=== PATIENT | female | born 2000 | race Hispanic/Latino ===

== ENCOUNTER → 2024-01-26 | Day surgery (SDC) | payer OTHER ==
[2024-01-25 08:55] VITALS: BMI 20.5
[2024-01-25 14:27] LABS: Hematocrit 36.2 % (34.9-44.5); Hemoglobin 12.1 g/dL (12.0-15.5); Mean Corpuscular HGB CONC 33.4 g/dL (32.0-36.0); Mean Corpuscular Hemoglobin 30.3 pg (27.0-33.0); Mean Corpuscular Volume 90.5 fl (81.6-98.3); Mean Platelet Volume 11.7 fl (7.4-10.4); Platelet Count 275 10x3/uL (150-450); White Blood Cell (WBC) Count 9.2 10x3/uL (3.5-10.5)
[~2024-01-26] MED LIST: Dexamethasone 20 MG/5 ML VIAL ONE; Ibuprofen 400 MG TAB PO PRN; Ketorolac Tromethamine 30 MG (1 mL) VIAL ONE; Lidocaine 2% PF 5 ML VIAL ONE; Meperidine HCl/PF 25 MG (1 mL) VIAL ONE; Midazolam HCl 2 mg/2 ml Vial ONE; Misoprostol 200 MCG TAB ONE; Ondansetron PF 4 MG/2 ML Vial ONE; PROPOFOL 20 ML ONE; cefTRIAXone (ROCEPHIN) 1 GM VIAL ONE; ePHEDrine Sulfate 50 MG/10 ML VIAL ONE
== END ==
LOC: CSHSDC 09:33
PROVIDERS: ATTEND Student in an Organized Health Care Education/Training Program
PROC: 10D17ZZ Extraction of Products of Conception, Retained, Via Natural or Artificial Opening (ICD-10-PCS; principal; 2024-01-26)
DX: O02.1 Missed abortion (principal)
CPT/HCPCS: 36415; 85027; 86850; 86900; 86901; 88305; J0696; J1100; J1885; J2001; J2175; J2250; J2405; J2704